=== PATIENT | male | born 1990 | race Caucasian/White ===

== ENCOUNTER 2017-02-04 11:24 | Emergency (ER) | payer OTHER ==
[~2017-02-04] VITALS: Ht 180.3 cm; Wt 70.5 kg
[2017-02-04 11:29] VITALS: BP 133/83
[2017-02-04] MEDS ORDERED: KETOROLAC 30 MG/1 ML ONE (12:26)
[2017-02-04] MEDS ORDERED: KETOROLAC 30 MG/1 ML IM ONE (12:30)
== END 2017-02-04 13:16 | disposition home or self-care (01) ==
LOC: ED 13:00
DX: S16.1XXA Strain of muscle, fascia and tendon at neck level, initial encounter (principal); V43.54XA Car driver injured in collision with van in traffic accident, initial encounter; Y93.89 Activity, other specified; Y92.410 Unspecified street and highway as the place of occurrence of the external cause; Y99.8 Other external cause status
CPT/HCPCS: 96372; 99283; J1885

== ENCOUNTER 2017-02-06 10:38 | Emergency (ER) | payer MEDICAID, OTHER ==
[~2017-02-06] VITALS: Ht 180.3 cm; Wt 70.0 kg
[2017-02-06] MEDS ORDERED: HYDROcodone/APAP 5/325 TABLET PO ONE (11:30)
[2017-02-06] MEDS ORDERED: HYDROcodone/APAP 5/325 TABLET ONE (12:06)
[2017-02-06 12:09] VITALS: BP 131/77
[2017-02-06 12:21] LABS: PATH.CAST-FLAG NOT PRESENT; SPERM-FLAG NOT PRESENT; SRC-FLAG NOT PRESENT; XTAL-FLAG NOT PRESENT; YLC-FLAG NOT PRESENT
== END 2017-02-06 12:32 | disposition home or self-care (01) ==
LOC: ED 12:26
DX: S16.1XXD Strain of muscle, fascia and tendon at neck level, subsequent encounter (principal); S39.012D Strain of muscle, fascia and tendon of lower back, subsequent encounter; F12.10 Cannabis abuse, uncomplicated
CPT/HCPCS: 71020; 72050; 72110; 81001; 99285

== ENCOUNTER 2017-02-08 11:43 | Emergency (ER) | payer MEDICAID ==
[~2017-02-08] VITALS: Ht 180.3 cm; Wt 74.0 kg
[2017-02-08 11:54] VITALS: BP 131/67
== END 2017-02-08 13:20 ==
LOC: ED 13:14
DX: M54.5 Low back pain (principal); M54.2 Cervicalgia; G43.909 Migraine, unspecified, not intractable, without status migrainosus
CPT/HCPCS: 99281

== ENCOUNTER 2018-10-02 09:49 | Emergency (ER) | payer MEDICAID ==
[~2018-10-02] VITALS: Ht 180.3 cm; Wt 73.4 kg
[2018-10-02 09:53] VITALS: BP 127/70
[2018-10-02] MEDS ORDERED: LIDOCAINE-MPF 1%, 5ML ONE (10:17)
[2018-10-02] MEDS ORDERED: LIDOCAINE-MPF 1%, 5ML INFIL ONE (10:30)
== END 2018-10-02 10:39 | disposition home or self-care (01) ==
LOC: ED 10:11
DX: L02.31 Cutaneous abscess of buttock (principal)
CPT/HCPCS: 10060; 99283